=== PATIENT | male | born 1990 | race African-American/Black ===

== ENCOUNTER 2017-12-23 01:46 | Emergency (ER) | payer MEDICAID ==
[~2017-12-23] VITALS: Ht 157.5 cm; Wt 59.0 kg
[2017-12-23 02:47] VITALS: BP 122/76
== END 2017-12-23 08:14 | disposition left against medical advice (07) ==
LOC: ER 01:46
DX: R07.9 Chest pain, unspecified (principal); R06.02 Shortness of breath; Z53.21 Procedure and treatment not carried out due to patient leaving prior to being seen by health care provider
CPT/HCPCS: 93005

== ENCOUNTER 2018-02-26 18:17 | Emergency (ER) | payer MEDICAID ==
[~2018-02-26] VITALS: Ht 162.6 cm; Wt 57.0 kg
[2018-02-26 18:25] VITALS: BP 140/95
[2018-02-26 18:53] LABS: BASOPHILS % 0.2 % (0.0-2.0); EOSINOPHILS % 0.4 % (0.0-5.0); HEMATOCRIT. 42.1 % (42.0-52.0); HEMOGLOBIN. 14.2 g/dL (14.0-18.0); MEAN CORPUSCULAR HEMOGLOBIN 30.3 pg (28.0-32.0); MEAN CORPUSCULAR VOLUME 89.7 fL (80.0-94.0); MEAN PLATELET VOLUME 6.8 fl (7.4-10.4); MONOCYTES % 5.8 % (2.0-8.0); NEUTROPHILS % 77.6 % (40.0-76.0); PLATELET 299 x1000/uL (130-400); RED BLOOD CELL COUNT 4.69 mill/uL (4.7-6.1); RED CELL DISTRIBUTION WIDTH 14.1 % (11.6-14.6)
[2018-02-26 18:59] LABS: CHLORIDE 104 mEq/L (98-107)
[2018-02-26 19:01] LABS: PARTIAL THROMBOPLASTIN TIME 25.8 sec (23.4-31.0); PROTHROMBIN TIME 10.8 sec (9.4-11.6)
== END 2018-02-26 20:15 | disposition left against medical advice (07) ==
LOC: ER 19:10
DX: R07.89 Other chest pain (principal); R00.2 Palpitations; R42 Dizziness and giddiness; F15.10 Other stimulant abuse, uncomplicated; F12.90 Cannabis use, unspecified, uncomplicated
CPT/HCPCS: 36415; 80053; 83690; 84484; 85025; 85610; 85730; 93005; 99285

== ENCOUNTER 2018-06-23 04:30 | Emergency (ER) | payer MEDICAID ==
[~2018-06-23] VITALS: Ht 157.5 cm; Wt 52.0 kg
[2018-06-23] MEDS ORDERED: LORAZEPAM 0.5MG TABLET PO ONE (06:30)
[2018-06-23 07:03] VITALS: BP 129/93
== END 2018-06-23 07:17 | disposition home or self-care (01) ==
LOC: ER 05:00
DX: F41.9 Anxiety disorder, unspecified (principal); R07.9 Chest pain, unspecified; R00.2 Palpitations; F20.9 Schizophrenia, unspecified; F17.200 Nicotine dependence, unspecified, uncomplicated; F12.10 Cannabis abuse, uncomplicated
CPT/HCPCS: 93005; 99284; Z7610

== ENCOUNTER 2024-10-04 01:21 | Emergency (ER) | payer MEDICAID ==
[~2024-10-04] VITALS: Ht 157.5 cm; Wt 59.0 kg
[2024-10-04 01:50] VITALS: O2SAT 98
[2024-10-04] MEDS ORDERED: PSEU120T56 MT (02:34)
[2024-10-04 03:53] VITALS: BP 138/88; PULSE 89; RESP 19; TEMP 36.83628; O2SAT 99
== END 2024-10-04 03:54 | disposition home or self-care (01) ==
LOC: ER 01:33
DX: B34.9 Viral infection, unspecified (principal); F12.10 Cannabis abuse, uncomplicated
CPT/HCPCS: 71045; 99283